=== PATIENT | female | born 1970 | race Caucasian/White ===

== ENCOUNTER 2016-09-21 14:26 | Emergency (ER) | payer OTHER ==
[~2016-09-21] VITALS: Ht 172.7 cm; Wt 81.4 kg
--- NOTE | 2016-09-21 15:46 | EKG ---
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
--- NOTE | 2016-09-21 16:10 | RAD ---
Chest radiograph 09/21/2016 at 1601 hours Indication: Lower extremity edema, shortness of breath Comparison: Chest radiograph 12/05/2015 Technique: Single portable upright view of the chest is provided. Findings: Enlarged cardiomediastinal silhouette. Likely trace bilateral pleural effusions. Increased interstitial bilateral markings are compatible with moderate pulmonary vascular congestion. No pneumothorax. Similar appearance of S-shaped scoliosis of the thoracolumbar spine. Impression: Moderate cardiomegaly with moderate pulmonary vascular congestion compatible with congestive heart failure.
[2016-09-21 16:12] LABS: BASO # 0.1 x10^3/uL (0.0-0.2); BASO % 1 % (0-3); EOS # 0.1 x10^3/uL (0.0-0.7); EOS % 2 % (0-3); HEMATOCRIT 35.9 % (36.0-47.0); LYMPH # 0.9 x10^3/uL (1.0-4.8); LYMPH % 13 % (24-48); MEAN CORPUSCULAR HEMOGLOBIN 23 pg (25-35); MEAN CORPUSCULAR HGB CONC 31 g/dL (31-37); MEAN CORPUSCULAR VOLUME 74 fL (79-100); MONO # 0.7 x10^3/uL (0.0-1.1); MONO % 10 % (0-9); NEUT # 4.9 x10^3uL (1.8-7.7); NEUT % 74 % (31-73); PLATELET COUNT 211 x10^3/uL (140-400); RED BLOOD COUNT 4.86 x10^6/uL (3.50-5.40); RED CELL DISTRIBUTION WIDTH 19.1 % (11.5-14.5); WHITE BLOOD COUNT 6.7 x10^3/uL (4.0-11.0)
[2016-09-21 16:37] LABS: ALBUMIN 3.5 g/dL (3.4-5.0); ALBUMIN/GLOBULIN RATIO 0.9 (1.0-1.7); CREATININE 0.6 mg/dL (0.6-1.0); GFR 108.6; POTASSIUM 4.2 mmol/L (3.5-5.1); TOTAL BILIRUBIN 1.1 mg/dL (0.2-1.0); TOTAL PROTEIN 7.4 g/dL (6.4-8.2)
[2016-09-21] MEDS ORDERED: FUROSEMIDE 40 MG/4 ML VIAL IVP ONE (17:30)
--- NOTE | 2016-09-21 18:27 | PHYS DOC ---
Past History Past Medical History: Asthma, Bronchitis Past Surgical History: No Surgical History, Other Alcohol Use: None Drug Use: None Adult General Chief Complaint Chief Complaint: LOWER EXTREMITY SWELLING HPI HPI Patient is a 46 year old female who presents with complaint of lower extremity edema and shortness of breath. Patient states her symptoms have been worsening over the past 3 days. Patient states she has history of chronic bronchitis and interstitial lung disease. Patient follows a Dr. Franklin for pulmonology. Patient denies any history of heart problems or congestive heart failure. Patient states that she has had significant worsening edema over the past 3 days. Patient also states that she is had increase her oxygen requirement due to shortness of breath especially with exertion. Patient denies any substernal chest pain, fever, nausea, vomiting, or abdominal pain. Patient is not on any diuretics at this time. Review of Systems Review of Systems Constitutional: Denies fever or chills [] Eyes: Denies change in visual acuity, redness, or eye pain [] HENT: Denies nasal congestion or sore throat [] Respiratory: Shortness of breath [] Cardiovascular: Lower extremity edema, dyspnea on exertion, denies chest pain [] GI: Denies abdominal pain, nausea, vomiting, bloody stools or diarrhea [] : Denies dysuria or hematuria [] Musculoskeletal: Denies back pain or joint pain [] Integument: Denies rash or skin lesions [] Neurologic: Denies headache, focal weakness or sensory changes [] Current Medications Current Medications Current Medications Medications (Trade) Dose Ordered Sig/Liam Start Time Stop Time Status Last Admin Dose Admin Furosemide (Lasix) 60 mg 1X ONCE 09/21/16 17:30 09/21/16 17:31 DC 09/21/16 17:42 60 MG Allergies Allergies Allergies Coded Allergies Type Severity Reaction Last Updated Verified No Known Drug Allergies 09/21/16 No Physical Exam Physical Exam Constitutional: Alert, afebrile, appears in mild respiratory distress. [] HENT: Normocephalic, atraumatic, bilateral external ears normal, oropharynx moist, no oral exudates, nose normal. [] Eyes: PERRLA, EOMI, conjunctiva normal, no discharge. [] Neck: Normal range of motion, no tenderness, supple, no stridor. [] Cardiovascular:Heart rate regular rhythm, grade 3/6 systolic ejection murmur heard along left sternal border [] Lungs & Thorax: Mild to moderate restriction of air movement bilaterally, rales bilaterally, no wheezes [] Abdomen: Bowel sounds normal, soft, no tenderness, no masses, no pulsatile masses. [] Skin: Warm, dry, no erythema, no rash. [] Back: No tenderness, no CVA tenderness. [] Extremities: No tenderness, no cyanosis, no clubbing, ROM intact, 3+ pitting edema in the bilateral lower extremities. [] Neurologic: Alert and oriented X 3, normal motor function, normal sensory function, no focal deficits noted. [] Current Patient Data Vital Signs Vital Signs Date Time Temp Pulse Resp B/P (MAP) Pulse Ox O2 Delivery O2 Flow Rate FiO2 09/21/16 15:05 98.2 74 24 97 Room Air Lab Results Laboratory Tests Test 09/21/16 14:55 White Blood Count 6.7 x10^3/uL (4.0-11.0) Red Blood Count 4.86 x10^6/uL (3.50-5.40) Hemoglobin 11.0 g/dL (12.0-15.5) L Hematocrit 35.9 % (36.0-47.0) L Mean Corpuscular Volume 74 fL (79-100) L Mean Corpuscular Hemoglobin 23 pg (25-35) L Mean Corpuscular Hemoglobin Concent 31 g/dL (31-37) Red Cell Distribution Width 19.1 % (11.5-14.5) H Platelet Count 211 x10^3/uL (140-400) Neutrophils (%) (Auto) 74 % (31-73) H Lymphocytes (%) (Auto) 13 % (24-48) L Monocytes (%) (Auto) 10 % (0-9) H Eosinophils (%) (Auto) 2 % (0-3) Basophils (%) (Auto) 1 % (0-3) Neutrophils # (Auto) 4.9 x10^3uL (1.8-7.7) Lymphocytes # (Auto) 0.9 x10^3/uL (1.0-4.8) L Monocytes # (Auto) 0.7 x10^3/uL (0.0-1.1) Eosinophils # (Auto) 0.1 x10^3/uL (0.0-0.7) Basophils # (Auto) 0.1 x10^3/uL (0.0-0.2) Platelet Estimate Pending Sodium Level 141 mmol/L (136-145) Potassium Level 4.2 mmol/L (3.5-5.1) Chloride Level 103 mmol/L (98-107) Carbon Dioxide Level 37 mmol/L (21-32) H Anion Gap 1 (6-14) L Blood Urea Nitrogen 9 mg/dL (7-20) Creatinine 0.6 mg/dL (0.6-1.0) Estimated GFR (Cockcroft-Gault) 108.6 BUN/Creatinine Ratio 15 (6-20) Glucose Level 83 mg/dL (70-99) Calcium Level 9.0 mg/dL (8.5-10.1) Total Bilirubin 1.1 mg/dL (0.2-1.0) H Aspartate Amino Transferase (AST) 26 U/L (15-37) Alanine Aminotransferase (ALT) 34 U/L (14-59) Alkaline Phosphatase 58 U/L (46-116) Creatine Kinase 395 U/L (26-192) H Creatine Kinase MB (Mass) 4.8 ng/mL (0.0-3.6) H Creatine Kinase MB Relative Index 1.2 % (0-4) Troponin I Quantitative 0.020 ng/mL (0-0.055) MV-Cpq-Y-Type Natriuretic Peptide 2845 pg/mL (0-124) H Total Protein 7.4 g/dL (6.4-8.2) Albumin 3.5 g/dL (3.4-5.0) Albumin/Globulin Ratio 0.9 (1.0-1.7) L EKG EKG Interpreted by me: Heart rate 92, sinus rhythm, right axis deviation, no acute ST/T-wave abnormalities present [] Radiology/Procedures Radiology/Procedures [address] [address] IMAGING REPORT Signed PATIENT: ALTON YO ACCOUNT: [id number] : 1970 LOCATION: ER AGE: 46 SEX: F EXAM STATUS: PRE ER ORD. PHYSICIAN: YVETTE PAVON MD REASON: shortness of breath, lower extremity edema PROCEDURE: PORTABLE CHEST 1V Chest radiograph 09/21/2016 at 1601 hours Indication: Lower extremity edema, shortness of breath Comparison: Chest radiograph 12/05/2015 Technique: Single portable upright view of the chest is provided. Findings: Enlarged cardiomediastinal silhouette. Likely trace bilateral pleural effusions. Increased interstitial bilateral markings are compatible with moderate pulmonary vascular congestion. No pneumothorax. Similar appearance of S-shaped scoliosis of the thoracolumbar spine. Impression: Moderate cardiomegaly with moderate pulmonary vascular congestion compatible with congestive heart failure. DICTATED AND SIGNED BY: OZZIE JESSICA MD DATE: 09/21/16 1605 CC: YVETTE PAVON MD; JARAD DICKENS APRN ~ [] Course & Med Decision Making Course & Med Decision Making Pertinent Labs and Imaging studies reviewed. (See chart for details) Patient's workup shows evidence of acute congestive heart failure. The patient will need further workup as to the cause of the patient's acute congestive heart failure as the patient has no previous history. Myocardial ischemia has not been ruled out at this time. The patient was started on IV Lasix in the emergency department. I spoke with Dr. Victor of cardiology. He asked that the patient be transferred to [facility] as he has additional resources that the patient may require including stress testing and possible cardiac catheterization. I spoke with Dr. Ponce, hospitalist, who accepted care patient. Patient will be transferred by ground ambulance to [facility] for further treatment. I spoke with patient regarding treatment plan and she is in agreement at this time. Dragon Disclaimer Dragon Disclaimer This chart was dictated in whole or in part using Voice Recognition software in a busy, high-work load, and often noisy Emergency Department environment. It may contain unintended and wholly unrecognized errors or omissions. Departure Departure: Impression: Primary Impression: Acute congestive heart failure Additional Impressions: Pulmonary edema Chronic lung disease Disposition: OTHER Condition: GUARDED Referrals: JARAD DICKENS APRN (PCP) Problem Qualifiers Primary Impression: Acute congestive heart failure Congestive heart failure type: unspecified congestive heart failure type Qualified Codes: I50.9 - Heart failure, unspecified Additional Impressions: Pulmonary edema Chronicity: acute Qualified Codes: J81.0 - Acute pulmonary edema YVETTE PAVON MD Sep 21, 2016 18:27
[2016-09-21 19:01] VITALS: BP 136/82
[2016-09-21 21:12] LABS: HYPOCHROMIA MOD; MICROCYTOSIS SLIGHT; OVALOCYTES OCC; PLT ESTIMATE ADEQUATE (ADEQUATE)
== END 2016-09-21 19:03 | disposition short-term general hospital (02) ==
LOC: ER 14:26
DX: I50.9 Heart failure, unspecified (principal); J98.4 Other disorders of lung; J81.0 Acute pulmonary edema; J45.909 Unspecified asthma, uncomplicated; J84.9 Interstitial pulmonary disease, unspecified
CPT/HCPCS: 36415; 71010; 80053; 82553; 83880; 84484; 85008; 85027; 93005; 96374; 99285; J1940

== ENCOUNTER 2017-01-19 13:27 | Emergency (ER) | payer OTHER ==
--- NOTE | 2017-01-19 13:56 | EKG ---
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
[2017-01-19] MEDS ORDERED: IPRATRPIUM/ALBUTEROL 0.5/2.5MG 3 ML NEBU. NEB ONE (14:00)
[2017-01-19] MEDS ORDERED: FUROSEMIDE 40 MG/4 ML VIAL IVP ONE ×2 (14:00→14:15)
[2017-01-19] MEDS ORDERED: ASPIRIN 81 MG TAB.CHEW PO ONE (14:00)
--- NOTE | 2017-01-19 14:16 | RAD ---
EXAM: Chest, single view. HISTORY: Shortness of breath. COMPARISON: 09/21/2016. FINDINGS: A frontal view of the chest obtained. There is stable diffuse increased interstitial opacity due to edema. There is no effusion or pneumothorax. The heart is normal in size. IMPRESSION: Stable pulmonary congestion.
[2017-01-19 14:19] LABS: BASO # 0.1 x10^3/uL (0.0-0.2); BASO % 1 % (0-3); EOS # 0.1 x10^3/uL (0.0-0.7); EOS % 2 % (0-3); HEMATOCRIT 43.1 % (36.0-47.0); HEMOGLOBIN 13.5 g/dL (12.0-15.5); LYMPH # 1.4 x10^3/uL (1.0-4.8); LYMPH % 20 % (24-48); MEAN CORPUSCULAR HEMOGLOBIN 25 pg (25-35); MEAN CORPUSCULAR HGB CONC 31 g/dL (31-37); MEAN CORPUSCULAR VOLUME 80 fL (79-100); MONO # 0.7 x10^3/uL (0.0-1.1); MONO % 10 % (0-9); NEUT # 4.6 x10^3uL (1.8-7.7); NEUT % 67 % (31-73); PLATELET COUNT 207 x10^3/uL (140-400); RED BLOOD COUNT 5.38 x10^6/uL (3.50-5.40); RED CELL DISTRIBUTION WIDTH 21.8 % (11.5-14.5); WHITE BLOOD COUNT 6.9 x10^3/uL (4.0-11.0)
--- NOTE | 2017-01-19 14:37 | PHYS DOC ---
General Chief Complaint: SHORTNESS OF BREATH Stated Complaint: SOA/EDEMA Time Seen by MD: 13:42 Source: patient, old records Exam Limitations: no limitations Problems: History of Present Illness Initial Comments Pt is 46/F to ED POV c/o lower extremity edema and worsening SOB for the past week. Pt states symptoms have gradually increased over the past week, uses 2L O2 NC at home for interstitial lung dz/pulmonary fibrosis follows with Dr Franklin. New symptoms this occurrance pt has edema at her posterior thighs and pitting edema at abdomen. Pt says her thighs rub together when she walks now due to swelling and her legs feel heavy. She's had significantly increased cough ( clear) and CARTY, also has orthopnea no CP/n/v/diaphoresis. Pt presented similarly here this past September, was transferred to [facility] with new onset CHF diagnosis. Echo at that time revealed EF 55-60% with severe PHTN and RHF. Pt was discharged home without diuretics due to hypotension. Primary care is Belen hansen senior strategy manager and no longer follows with rheumatology. Timing/Duration: 1 week, getting worse, changing over time Severity: severe Modifying Factors: worse with movement, improves with rest Associated Symptoms: cough, shortness of breath, weakness, other Allergies: Coded Allergies: No Known Drug Allergies (Unverified , 09/21/16) Past Medical History Medical History: other (asthma, CHF, SLE, Raynauds, Interstitial Lung dz, Hypotension, SLE Lung (used to take plaquenil), respiratory failure/hypoxia uses home O2) Surgical History: other Family History Significant Family History: heart disease, diabetes, hypertension (HLP) Social History Smoker: non-smoker Alcohol: none Drugs: none Review of Systems Constitutional: denies chills, denies diaphoresis, denies fever, malaise, weakness Respiratory: see HPI Cardiovascular: denies chest pain, edema, denies palpitations, denies syncope Gastrointestinal: denies abdominal pain, denies diarrhea, denies nausea, denies vomiting Genitourinary: denies dysuria, denies frequency, denies hematuria Musculoskeletal: denies back pain, denies joint swelling, denies neck pain Psychiatric/Neurological: denies headache, denies numbness, denies paresthesia Hematologic/Lymphatic: see HPI, denies blood clots, denies easy bleeding, denies easy bruising Physical Exam General Appearance: moderate distress (conversational dyspnea) Eyes: bilateral eye normal inspection, bilateral eye PERRL, bilateral eye EOMI Ear, Nose, Throat: hearing grossly normal, normal ENT inspection, normal pharynx Neck: non-tender, supple Respiratory: other (BS decreased globally, rales/wheezes) Cardiovascular: normal peripheral pulses, regular rate, rhythm, systolic murmur (L USB), other (3+ pitting LE up thighs, 1+ pitting abdomen) Gastrointestinal: non tender, soft Back: no CVA tenderness, no vertebral tenderness Extremities: normal range of motion, non-tender, no calf tenderness, pelvis stable Neurologic/Psychiatric: clerk to justice II-XII nml as tested, no motor/sensory deficits, alert, normal mood/affect, oriented x 3 Skin: normal color, warm/dry Orders, Labs, Meds Duoneb, solumedrol 125mg IV, lasix 40mg IV given on arrival. EKG: Interp by me: NSR 91 bpm, T contour abnormality some artifact, no STEMI. Similar to 09/2016 study. PATIENT: ALTON YO ACCOUNT: [id number] : 1970 LOCATION: ER AGE: 46 SEX: F EXAM STATUS: PRE ER ORD. PHYSICIAN: JESS MARTINEZ DO REASON: CHF PROCEDURE: PORTABLE CHEST 1V EXAM: Chest, single view. HISTORY: Shortness of breath. COMPARISON: 09/21/2016. FINDINGS: A frontal view of the chest obtained. There is stable diffuse increased interstitial opacity due to edema. There is no effusion or pneumothorax. The heart is normal in size. IMPRESSION: Stable pulmonary congestion. DICTATED AND SIGNED BY: ELLA GUPTA MD DATE: 01/19/17 1411 CC: JARAD DICKENS THEATRE PROGRAM DIRECTOR; JESS MARTINEZ DO ~ Troponin < 0.017, d-dimer 0.63, CO2 37, BNP 4033 1448: I discussed pt with network solutions architect hospitalist at [facility] Dr Chandler. After thorough discussion he feels pt may need Pulm/Cardio intervention, requests pt transfer to [facility]. 1510: I discussed pt with Dr Jarrett, he advises no lovenox for now transfer to telemetry [facility]. 1609: Pt left in improved condition, 1300cc UO noted. IMPRESSIONS: CHF Exacerbation Elevated d-dimer/hypercoagulable Acute on chronic respiratory distress/failure LE edema Chronic lung dz SLE/Raynauds 1445: Pt rechecked, sitting up on bedside commode states she's started producing lots of UO no new symptoms resting comfortably. Departure Time of Disposition: 14:58 Disposition: 02 XFER S[facility]-TRM HOSP Diagnosis: CHF Exacerbation, LE Edema, Resp Distress, Elev d- Condition: STABLE Additional Instructions: Transfer to [facility] Dr Jarrett is accepting. JESS MARTINEZ DO Jan 19, 2017 14:37
[2017-01-19 14:39] LABS: ALBUMIN 3.5 g/dL (3.4-5.0); ALBUMIN/GLOBULIN RATIO 0.9 (1.0-1.7); CREATININE 0.6 mg/dL (0.6-1.0); GFR 108.6; POTASSIUM 4.1 mmol/L (3.5-5.1); TOTAL BILIRUBIN 0.8 mg/dL (0.2-1.0); TOTAL PROTEIN 7.2 g/dL (6.4-8.2)
[2017-01-19 14:51] LABS: PLT ESTIMATE ADEQUATE (ADEQUATE)
[2017-01-19 15:00] VITALS: BP 140/93
== END 2017-01-19 16:00 | disposition short-term general hospital (02) ==
LOC: ER 13:27
DX: I50.9 Heart failure, unspecified (principal); R60.0 Localized edema; R06.00 Dyspnea, unspecified; R79.1 Abnormal coagulation profile; J98.4 Other disorders of lung; J45.909 Unspecified asthma, uncomplicated; Z99.81 Dependence on supplemental oxygen
CPT/HCPCS: 36415; 71010; 80053; 82550; 83880; 84484; 85025; 85379; 93005; 94640; 96374; 96375; 99285; J1940; J7620